=== PATIENT | male | born 1980 | race Caucasian/White ===

== ENCOUNTER 2019-10-03 08:30 | Emergency (ER) | payer SELFPAY ==
--- OUTSIDE RECORDS SUMMARY | 2019-10-03 08:34 | XMS REPORT ---
:1980 [facility] Address [address] [place] [address] Care Team Providers Name Role Phone Unavailable Unavailable Unavailable Payers Payer Name Policy Type Policy Number Effective Date Expiration Date Problems This patient has no known problems. Allergies, Adverse Reactions, Alerts Allergy Allergy Status Severity Reaction(s) Onset Inactive Treating Comments Name Type Date Date Clinician codeine DA Active 2018-06 00:00:0 0 codeine DA Active 2018-05 00:00:0 0 Medications This patient has no known medications. Encounters Start End Encounter Admission Attending Care Care Encounter Date/Time Date/Time Type Type Clinicians Facility Department ID 2018-01-22 2018-01-22 Emergency [facility] [id number] 08:11:11 08:11:11 Results Test Description Test Time Test Comments Text Results Atomic Results Result Comments BASIC METABOLIC PANEL 2019-09-02 23:06:00 Test Item Value Reference Range Comments SODIUM (test code=NA) 137 MMOL/L 137-145 POTASSIUM (test code=K) MMOL/L 3.5-5.1 VERY HEMOLYSED ASK FOR RECOLLECTION CHLORIDE (test code=CL) 100 MMOL/L 98-107 CARBON DIOXIDE (test code=CO2) 29 MMOL/L 22-30 ANION GAP (test code=GAP) 12 MMOL/L 14-24 GLUCOSE (test code=GLU) 143 MG/DL 74-106 BLOOD UREA NITROGEN (test 15 MG/DL 9-20 code=BUN) GLOMERULAR FILTRATION RATE > 60 Reporting units: ml/min/1.73 m2 (test code=GFR) (Modified MDRD Formula)Reference Range: > or=60 ml/min/1.73 m2 CREATININE (test code=CREAT) 0.70 MG/DL 0.66-1.25 CALCIUM (test code=CA) 8.9 MG/DL 8.4-10.2 RECOLLECTION NEEDED ON 09/02/19 AT 2142 BY Z.LAB.TBPREASON: HEMOLYSEDNOTIFIED PATIENT CARE STAFF: JOSE J [email or web address] METABOLIC [id number] 23:06:00 Test Item Value Reference Range Comments SODIUM (test code=NA) 137 MMOL/L 137-145 POTASSIUM (test code=K) 3.7 MMOL/L 3.5-5.1 VERY HEMOLYSED ASK FOR RECOLLECTIONPreviously reported result: MMOL/LEdited by: Jeannette.LAB.TBP on 09/02/19:2305 CHLORIDE (test code=CL) 100 MMOL/L 98-107 CARBON DIOXIDE (test 29 MMOL/L 22-30 code=CO2) ANION GAP (test 12 MMOL/L 14-24 code=GAP) GLUCOSE (test code=GLU) 143 MG/DL 74-106 BLOOD UREA NITROGEN 15 MG/DL 9-20 (test code=BUN) GLOMERULAR FILTRATION > 60 Reporting units: ml/min/1.73 m2 RATE (test code=GFR) (Modified MDRD Formula)Reference Range: > or=60 ml/min/1.73 m2 CREATININE (test 0.70 MG/DL 0.66-1.25 code=CREAT) CALCIUM (test code=CA) 8.9 MG/DL 8.4-10.2 RECOLLECTION NEEDED ON 09/02/19 AT 2142 BY Z.LAB.TBPREASON: HEMOLYSEDNOTIFIED PATIENT CARE STAFF: KATHERYN BROWN METABOLIC [id number] 21:55:00 Test Item Value Reference Range Comments SODIUM (test code=NA) MMOL/L 137-145 POTASSIUM (test code=K) MMOL/L 3.5-5.1 VERY HEMOLYSED ASK FOR RECOLLECTION CHLORIDE (test code=CL) MMOL/L 98-107 CARBON DIOXIDE (test 29 MMOL/L 22-30 code=CO2) GLUCOSE (test code=GLU) 143 MG/DL 74-106 BLOOD UREA NITROGEN (test 15 MG/DL 9-20 code=BUN) GLOMERULAR FILTRATION RATE > 60 Reporting units: ml/min/1.73 (test code=GFR) m2 (Modified MDRD Formula)Reference Range: > or=60 ml/min/1.73 m2 CREATININE (test code=CREAT) 0.70 MG/DL 0.66-1.25 CALCIUM (test code=CA) 8.9 MG/DL 8.4-10.2 RECOLLECTION NEEDED ON 09/02/19 AT 2142 BY JANNETHTBPREASON: HEMOLYSEDNOTIFIED PATIENT CARE STAFF: STEPHANIEBB-TYPE NATRIURETIC [id number] 21:00:00 Test Item Value Reference Range Comments B-TYPE NATRIURETIC PEPTIDE (test code=BNP) 51.0 PG/ML 0-100 BASIC METABOLIC [id number] 20:53:00 Test Item Value Reference Range Comments SODIUM (test code=NA) MMOL/L 137-145 POTASSIUM (test code=K) MMOL/L 3.5-5.1 CHLORIDE (test code=CL) MMOL/L 98-107 CARBON DIOXIDE (test code=CO2) 29 MMOL/L 22-30 GLUCOSE (test code=GLU) 143 MG/DL 74-106 BLOOD UREA NITROGEN (test 15 MG/DL 05-02 code=BUN) GLOMERULAR FILTRATION RATE > 60 Reporting units: ml/min/1.73 (test code=GFR) m2 (Modified MDRD Formula)Reference Range: > or=60 ml/min/1.73 m2 CREATININE (test code=CREAT) 0.70 MG/DL 0.66-1.25 CALCIUM (test code=CA) 8.9 MG/DL 8.4-10.2 BASIC METABOLIC [id number] 20:52:00 Test Item Value Reference Range Comments SODIUM (test code=NA) MMOL/L 137-145 POTASSIUM (test code=K) MMOL/L 3.5-5.1 CHLORIDE (test code=CL) MMOL/L 98-107 CARBON DIOXIDE (test code=CO2) 29 MMOL/L 22-30 GLUCOSE (test code=GLU) MG/DL 74-106 BLOOD UREA NITROGEN (test MG/DL 920 code=BUN) GLOMERULAR FILTRATION RATE > 60 Reporting units: ml/min/1.73 (test code=GFR) m2 (Modified MDRD Formula)Reference Range: > or=60 ml/min/1.73 m2 CREATININE (test code=CREAT) 0.70 MG/DL 0.66-1.25 CALCIUM (test code=CA) MG/DL 8.7-9.7 - XR CHEST [id number] 20:52:00 Patient Name: WILLIS BELL Unit No: [id number] EXAMS: CPT CODE: [id number] XR CHEST 1V 58553 Location of dictation: B2 Portable chest one view. HISTORY: SOB COMMENT: Compared to 03/19/2019. The heart is slightly enlarged. There is diffuse interstitial prominence with no new consolidation, pneumothorax or effusion. Visualized soft tissues and skeletal structures are unremarkable. IMPRESSION: The appearance of the chest suggest mild CHF. at 2051 Reported and signed by: Mallory Srinivasan M.D. CC: Randy Wright MD Technologist : Hollie Rodas RT(R) Transcrpt Date/Tm/Trnsp: 09/02/2019 (2051) [email or web address] Orig Print D/T: S: 09/02/2019 (2054) [facility] NAME: WILLIS BELL [id number] PHYS: [place] [address] : 1980 AGE: 38 SEX: M LOC: Z.ERS PHONE #: [phone] DATE: 09/02/2019 STATUS: REG ER FAX #: [phone] RADIOLOGY NO: PAGE 1 Signed ReportTROPONIN I [id number] 20:42:00 Test Item Value Reference Range Comments TROPONIN I RAPID (test code=TROPIRAP) 0.03 NG/ML 0.00-0.05 CBC W/O [id number] 20:30:00 Test Item Value Reference Range Comments WHITE BLOOD CELL (test code=WBC) 10.2 K/MM3 3.8-9.8 RED BLOOD CELL (test code=RBC) 5.30 M/MM3 3.95-5.67 HEMOGLOBIN (test code=HGB) 14.9 G/DL 12.4-16.7 HEMATOCRIT (test code=HCT) 45.5 % 35.9-49.5 MEAN CELL VOLUME (test code=MCV) 86 fL 81.7-96.1 MEAN CELL HGB (test code=MCH) 28.1 pg 27.6-33.2 MEAN CELL HGB CONCETRATION (test code=MCHC) 32.7 % 32.9-35.5 RED CELL DISTRIBUTION WIDTH (test code=RDW) 13.6 % 12.1-15.2 PLATELET COUNT (test code=PLT) 230 K/MM3 129-368 NEUTROPHIL # (test code=NT#) 7.33 K/mm3 2.0-7.6 IMMATURE GRANULOCYTE # (test code=IG#) 0.04 x10 3/uL 0-0.03 LYMPHOCYTE # (test code=LY#) 1.67 K/mm3 1.0-3.8 MONOCYTE # (test code=MO#) 0.80 K/mm3 0.1-0.8 EOSINOPHIL # (test code=EO#) 0.31 K/mm3 0.0-0.2 BASOPHIL # (test code=BA#) 0.04 K/mm3 0.0-0.2 NUCLEATED RBC # (test code=NRBC#) 0.00 K/mm3 0.0-0.1 BASIC METABOLIC [id number] 16:31:00 Test Item Value Reference Range Comments SODIUM (test code=NA) 140 MMOL/L 137-145 POTASSIUM (test code=K) 4.2 MMOL/L 3.5-5.1 CHLORIDE (test code=CL) 100 MMOL/L 98-107 CARBON DIOXIDE (test code=CO2) 32 MMOL/L 22-30 GLUCOSE (test code=GLU) 119 MG/DL 74-106 BLOOD UREA NITROGEN (test 16 MG/DL 9-20 code=BUN) GLOMERULAR FILTRATION RATE > 60 Reporting units: ml/min/1.73 (test code=GFR) m2 (Modified MDRD Formula)Reference Range: > or=60 ml/min/1.73 m2 CREATININE (test code=CREAT) 0.90 MG/DL 0.66-1.25 CALCIUM (test code=CA) 9.7 MG/DL 8.4-10.2 CREATINE KINASE (CK)2019-03-23 16:31:00 Test Item Value Reference Range Comments CREATINE KINASE (CK) (test code=CK) 111 UNITS/L 55-170 [id number] 16:31:00 Test Item Value Reference Range Comments MAGNESIUM (test code=MAG) 2.1 MG/DL 1.6-2.3 CBC W/AUTO [id number] 16:24:00 Test Item Value Reference Range Comments WHITE BLOOD CELL (test code=WBC) 13.2 K/MM3 3.8-9.8 RED BLOOD CELL (test code=RBC) 5.48 M/MM3 3.95-5.67 HEMOGLOBIN (test code=HGB) 15.6 G/DL 12.4-16.7 HEMATOCRIT (test code=HCT) 49.0 % 35.9-49.5 MEAN CELL VOLUME (test code=MCV) 89 fL 81.7-96.1 MEAN CELL HGB (test code=MCH) 28.5 pg 27.6-33.2 MEAN CELL HGB CONCETRATION (test code=MCHC) 31.8 % 32.9-35.5 RED CELL DISTRIBUTION WIDTH (test code=RDW) 14.3 % 12.1-15.2 PLATELET COUNT (test code=PLT) 285 K/MM3 129-368 MEAN PLATELET VOLUME (test code=MPV) 9.9 fl 7.4-10.4 NEUTROPHIL % (test code=NT%) 80.6 % 43-75 IMMATURE GRANULOCYTE % (test code=IG%) 0.4 % 0.0-2.0 LYMPHOCYTE % (test code=LY%) 11.1 % 14-44 MONOCYTE % (test code=MO%) 6.5 % 4-13 EOSINOPHIL % (test code=EO%) 1.1 % 0-6 BASOPHIL % (test code=BA%) 0.3 % 0-2 NUCLEATED RBC % (test code=NRBC%) 0.0 % 0-1.0 NEUTROPHIL # (test code=NT#) 10.62 K/mm3 2.0-7.6 IMMATURE GRANULOCYTE # (test code=IG#) 0.05 x10 3/uL 0-0.03 LYMPHOCYTE # (test code=LY#) 1.47 K/mm3 1.0-3.8 MONOCYTE # (test code=MO#) 0.86 K/mm3 0.1-0.8 EOSINOPHIL # (test code=EO#) 0.15 K/mm3 0.0-0.2 BASOPHIL # (test code=BA#) 0.04 K/mm3 0.0-0.2 NUCLEATED RBC # (test code=NRBC#) 0.00 K/mm3 0.0-0.1 TROPONIN I [id number] 15:04:00 Test Item Value Reference Range Comments TROPONIN I RAPID (test code=TROPIRAP) 0.02 NG/ML 0.00-0.05 CBC W/AUTO [id number] 15:04:00 Test Item Value Reference Range Comments WHITE BLOOD CELL (test code=WBC) 11.4 K/MM3 3.8-9.8 RED BLOOD CELL (test code=RBC) 4.82 M/MM3 3.95-5.67 HEMOGLOBIN (test code=HGB) 14.0 G/DL 12.4-16.7 HEMATOCRIT (test code=HCT) 41.3 % 35.9-49.5 MEAN CELL VOLUME (test code=MCV) 86 fL 81.7-96.1 MEAN CELL HGB (test code=MCH) 29.0 pg 27.6-33.2 MEAN CELL HGB CONCETRATION (test code=MCHC) 33.9 % 32.9-35.5 RED CELL DISTRIBUTION WIDTH (test code=RDW) 13.9 % 12.1-15.2 PLATELET COUNT (test code=PLT) 227 K/MM3 129-368 MEAN PLATELET VOLUME (test code=MPV) 9.6 fl 7.4-10.4 NEUTROPHIL % (test code=NT%) 79.2 % 43-75 IMMATURE GRANULOCYTE % (test code=IG%) 0.4 % 0.0-2.0 LYMPHOCYTE % (test code=LY%) 11.7 % 14-44 MONOCYTE % (test code=MO%) 6.5 % 4-13 EOSINOPHIL % (test code=EO%) 1.8 % 0-6 BASOPHIL % (test code=BA%) 0.4 % 0-2 NUCLEATED RBC % (test code=NRBC%) 0.0 % 0-1.0 NEUTROPHIL # (test code=NT#) 9.05 K/mm3 2.0-7.6 IMMATURE GRANULOCYTE # (test code=IG#) 0.04 x10 3/uL 0-0.03 LYMPHOCYTE # (test code=LY#) 1.33 K/mm3 1.0-3.8 MONOCYTE # (test code=MO#) 0.74 K/mm3 0.1-0.8 EOSINOPHIL # (test code=EO#) 0.21 K/mm3 0.0-0.2 BASOPHIL # (test code=BA#) 0.04 K/mm3 0.0-0.2 NUCLEATED RBC # (test code=NRBC#) 0.00 K/mm3 0.0-0.1 CHEMISTRY 8 [id number] 14:57:00 Test Item Value Reference Range Comments IONIZED CALCIUM (test MMOL/L 1.12-1.24 code=CAIABG) ISTAT-TCO2 VENOUS (test MMOL/L 23-32 code=TCO2VP) ISTAT-SODIUM (test code=NAP) MMOL/L 137-144 ISTAT-POTASSIUM (test code=KP) MMOL/L 3.1-4.8 ISTAT-CHLORIDE (test code=CLP) MMOL/L 97-108 ISTAT-GLUCOSE (test code=GLUP) MG/DL 60-99 ISTAT-BUN (test code=BUNP) MG/DL 9-21 BEDSIDE CREATININE (test MG/DL 0.6-1.4 code=CREATBED) GLOMERULAR FILTRATION RATE POC 95 70-162 Reporting units: ml/min/1.73 (test code=GFRBED) m2 (Modified MDRD Formula)Reference Range: > or=60 ml/min/1.73 m2 CHEMISTRY 8 [id number] 14:57:00 Test Item Value Reference Range Comments IONIZED CALCIUM (test 1.17 MMOL/L 1.12-1.24 code=CAIABG) ISTAT-TCO2 VENOUS (test 26 MMOL/L 23-32 code=TCO2VP) ISTAT-SODIUM (test code=NAP) 139 MMOL/L 137-144 ISTAT-POTASSIUM (test 3.9 MMOL/L 3.1-4.8 code=KP) ISTAT-CHLORIDE (test 101 MMOL/L 97-108 code=CLP) ISTAT-GLUCOSE (test 131 MG/DL 60-99 code=GLUP) ISTAT-BUN (test code=BUNP) 13 MG/DL 9-21 BEDSIDE CREATININE (test 0.9 MG/DL 0.6-1.4 code=CREATBED) GLOMERULAR FILTRATION RATE 95 70-162 Reporting units: ml/min/1.73 POC (test code=GFRBED) m2 (Modified MDRD Formula)Reference Range: > or=60 ml/min/1.73 m2 - XR CHEST [id number] 14:37:00 Patient Name: WILLIS BELL Unit No: [id number] EXAMS: CPT CODE: [id number] XR CHEST 1V 17677 LOCATION: T18 EXAM: CHEST 1 VIEW INDICATION: Chest Pain COMPARISON: Chest x-ray July 12, 2018 TECHNIQUE: AP chest radiograph. FINDINGS: Lungs are clear bilaterally without effusion. Heart is normalin size. Bones and peripheral soft tissues are unremarkable. IMPRESSION: Lungs are clear. No acute abnormality. at 1437 Reported and signed by: Linda Donovan MD CC: Victor M Robles MD Technologist: Emiliano Stoll RT(R) Transcrpt Date/ Tm/Trnsp: 03/19/2019 (2981) [email or web address] Orig Print D/T: S: 2018 (8032) [facility] NAME: WLILIS BELL [id number] PHYS: [email or web address] - [place] [address] : 1980 AGE: 38 SEX: M LOC: Z.ERS PHONE #: [phone] EXAM DATE: STATUS: PRE ER FAX #: [phone] RADIOLOGY NO: PAGE 1 Signed ReportXR Chest 1 View [id number] 06:30:09Patient : WILLIS BELL Date /Time12/09/2018 06:07 CDTReason for ExamChest [id number]: XR Chest 1 View FrontalHISTORY: Chest painCOMPARISON: NoneFINDINGS:The lungs are clear. No pleural effusion or pneumothorax. The cardiac silhouette is within normal limits. No acute osseous abnormalities.IMPRESSION:No acute cardiopulmonary disease. Final Dictated by: MD Alfa, Rosie DT/TM: 2018 6:29 amSigned by: MD Grimm VivekSigned (Electronic Signature): 2018 6:30 amCT Brain/Head w/o [id number] 06:26:00Patient: WILLIS BELL Date/Time2018 06:07 CDTReason for ExamDizzinessReportExam: CT of the brain without contrast.History: DizzinessLocation: [id number]: Contiguous axial CT images were obtained from the skull base through the vertexwithout contrast.Comparison : None availableFindings:The ventricles and sulci are normal in size and symmetric. The basal cisterns are patent. There is no mass effect or midline shift. There is no acuteintracranial hemorrhage. There are no extra-axial fluid collections.Paranasal sinuses and mastoid air cells are relatively clear.Impression:No CT evidence of an acute intracranial hemorrhage or significant mass effect Final Dictated by: MD Gilbert, SaniaDictated DT/TM: 12/09/2018 6:21 amSigned by: MD Gilbert, SaniaSigned (Electronic Signature): 12/09/2018 6:26 am
[2019-10-03] MEDS ORDERED: METOPROLOL TARTRATE 5 MG/5 ML INJ IV ONE (08:57)
[2019-10-03 09:12] LABS: Basophils % 0.3 % (0-1.3); Protime INR 1.04
--- NOTE | 2019-10-03 09:20 | RAD REPORT ---
EXAM DESCRIPTION: CT - Head Brain Wo Cont - 10/03/2019 9:10 am CLINICAL HISTORY: HEADACHE, hypertension COMPARISON: No comparisons TECHNIQUE: Axial 5 mm thick images of the head were obtained without IV contrast. All CT scans are performed using dose optimization technique as appropriate and may include automated exposure control or mA/KV adjustment according to patient size. FINDINGS: No intracranial hemorrhage, mass, edema or shift of mid-line structures. No acute infarcti on changes seen. No abnormal extra-axial fluid collections. Ventricles are normal. Mastoid air cells are clear. Paranasal sinuses are clear except for mild mucosal thickening right max illary sinus. No acute bony findings. IMPRESSION: Negative non-contrast CT head examination.
[2019-10-03 09:29] LABS: ALT/SGPT 34 U/L (12-78); AST/SGOT 21 U/L (15-37); Albumin 3.5 g/dL (3.4-5.0); Alkaline Phosphatase 101 U/L (45-117); BUN Blood Urea Nitrogen 12 mg/dL (7-18); Bicarbonate 29 mmol/L (21-32); Bilirubin Direct 0.1 mg/dL (0-0.2); Bilirubin Total 0.5 mg/dL (0.2-1.0); Glucose Level 209 mg/dL (74-106); NT PRO-BNP 412 pg/mL (<125); Potassium 3.8 mmol/L (3.5-5.1); Protein, Total 7.6 g/dL (6.4-8.2); Sodium Level 137 mmol/L (136-145); Troponin (Emerg Dept Use Only) < 0.02 ng/mL (0.0-0.045)
--- NOTE | 2019-10-03 10:33 | RAD REPORT ---
EXAM DESCRIPTION: Gary Single View10/03/2019 9:09 am CLINICAL HISTORY: Chest pain COMPARISON: none FINDINGS: The lungs appear clear of acute infiltrate. The heart is normal size IMPRESSION: No acute abnormalities displayed
[2019-10-03 10:44] LABS: Hematocrit 40.9 % (39.6-49.0); RBC Red Blood Cell Count 4.91 M/uL (4.33-5.43)
[2019-10-03 10:45] LABS: Absolute Lymphocytes (CBC) 0.7 K/uL (0.7-4.9); Lymphocytes % 5.6 % (15.3-44.8); MPV 7.8 fL (7.6-11.3)
[2019-10-03 10:50] LABS: Blood Morphology Comment NOT SEEN (NOT SEEN); Platelet Estimate ADEQ; Urine White Blood Cell Casts OK
--- NOTE | 2019-10-03 11:31 | EKG ---
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
--- NOTE | 2019-10-03 12:53 | EDPHYS ---
Physician Documentation [facility] Name: Clayton Nelson Age: 38 yrs Sex: Male : 1980 Arrival Date: 10/03/2019 Time: 08:36 Bed 6 Private MD: ED Physician Rafy Corral HPI: 10/03 13:23 This 38 yrs old Male presents to ER via EMS with complaints of ESPINOSA and HTN. kdr 13:23 The patient states that he awoke early this morning with a ESPINOSA and that it was worse kdr than others he had had. He was not able to go to work and called EMS to come to the ED. . 15:02 Onset: The symptoms/episode began/occurred acutely, this morning. Severity of symptoms: kdr At their worst the symptoms were moderate severe incapacitating just prior to arrival, in the emergency department the symptoms have improved mildly. The patient has not experienced similar symptoms in the past, States that he has had HAs before but not quite as bad as today. . The patient has not recently seen a physician. Historical: - Allergies: 08:40 Codeine; em - Home Meds: 08:40 Hydrochlorothiazide Oral [Active]; Lisinopril Oral [Active]; Lasix Oral [Active]; em - PMHx: 08:40 Hypertension; em - PSHx: 08:40 None; em - Immunization history:: Adult Immunizations up to date. - Coronavirus screen:: The patient has NOT traveled to [place] in the past 14 days. The patient has NOT had contact with known/suspected case of Coronavirus?. - Social history:: Smoking status: Patient denies any tobacco usage or history of. - Ebola Screening: : Patient negative for fever greater than or equal to 101.5 degrees Fahrenheit, and additional compatible Ebola Virus Disease symptoms Patient denies exposure to infectious person Patient denies travel to an Ebola-affected area in the 21 days before illness onset No symptoms or risks identified at this time. ROS: 15:02 Constitutional: Negative for fever, chills, and weight loss, Eyes: Negative for injury, kdr pain, redness, and discharge, ENT: Negative for injury, pain, and discharge, Neck: Negative for injury, pain, and swelling, Cardiovascular: Negative for chest pain, palpitations, and edema, Respiratory: Negative for shortness of breath, cough, wheezing, and pleuritic chest pain, Abdomen/GI: Negative for abdominal pain, nausea, vomiting, diarrhea, and constipation, Back: Negative for injury and pain, : Negative for injury, bleeding, discharge, and swelling, MS/Extremity: Negative for injury and deformity, Skin: Negative for injury, rash, and discoloration, Psych: Negative for depression, anxiety, suicide ideation, homicidal ideation, and hallucinations, Allergy/Immunology: Negative for hives, rash, and allergies, Endocrine: Negative for neck swelling, polydipsia, polyuria, polyphagia, and marked weight changes, Hematologic/Lymphatic: Negative for swollen nodes, abnormal bleeding, and unusual bruising. 15:02 Neuro: Positive for headache, speech changes, States he felt like his speech was slurring when he called EMS. Exam: 15:04 Constitutional: This is a well developed, well nourished patient who is awake, alert, kdr and in no acute distress. Head/Face: Normocephalic, atraumatic. Eyes: Pupils equal round and reactive to light, extra-ocular motions intact. Lids and lashes normal. Conjunctiva and sclera are non-icteric and not injected. Cornea within normal limits. Periorbital areas with no swelling, redness, or edema. Neck: Trachea midline, no thyromegaly or masses palpated, and no cervical lymphadenopathy. Supple, full range of motion without nuchal rigidity, or vertebral point tenderness. No Meningismus. Chest/axilla: Normal chest wall appearance and motion. Nontender with no deformity. No lesions are appreciated. Cardiovascular: Regular rate and rhythm with a normal S1 and S2. No gallops, murmurs, or rubs. Normal PMI, no JVD. No pulse deficits. Respiratory: Lungs have equal breath sounds bilaterally, clear to auscultation and percussion. No rales, rhonchi or wheezes noted. No increased work of breathing, no retractions or nasal flaring. Abdomen/GI: Obese Soft, non-tender, with normal bowel sounds. No distension or tympany. No guarding or rebound. No evidence of tenderness throughout. Back: No spinal tenderness. No costovertebral tenderness. Full range of motion. Skin: Warm, dry with normal turgor. Normal color with no rashes, no lesions, and no evidence of cellulitis. MS/ Extremity: Pulses equal, no cyanosis. Neurovascular intact. Full, normal range of motion. Neuro: Awake and alert, GCS 15, oriented to person, place, time, and situation. Cranial nerves II-XII grossly intact. Motor strength 5/5 in all extremities. Sensory grossly intact. Cerebellar exam normal. Normal gait. Psych: Awake, alert, with orientation to person, place and time. Behavior, mood, and affect are within normal limits. Vital Signs: 08:37 BP 194 / 118 RA (auto/); em 08:37 BP 219 / 125 LA (auto/); Pulse 77; Resp 18; Temp 98.4(O); Pulse Ox 95% on R/A; Weight em 179.17 kg; Height 6 ft. 1 in. (185.42 cm); Pain 8/10; 08:54 BP 164 / 93; Pulse 75; Resp 18; Pulse Ox 97% on R/A; em 10:00 BP 143 / 74; Pulse 62; Resp 14; Pulse Ox 95% ; sv 11:00 BP 125 / 73; Pulse 60; Resp 12; Pulse Ox 96% ; sv 14:58 BP 160 / 89; Pulse 78; Resp 18; Pulse Ox 99% on R/A; Pain 4/10; em 15:07 BP 162 / 87; Pulse 57; Resp 18; Pulse Ox 99% on R/A; Pain 4/10; em 15:15 BP 139 / 91; Pulse 58; Resp 18; Pulse Ox 99% on R/A; em 08:37 Body Mass Index 52.11 (179.17 kg, 185.42 cm) em MDM: 12:52 Patient medically screened. kdr 15:04 Data reviewed: vital signs, nurses notes, lab test result(s), radiologic studies. kdr Counseling: I had a detailed discussion with the patient and/or guardian regarding: the historical points, exam findings, and any diagnostic results supporting the discharge/admit diagnosis, lab results, radiology results. 15:21 ED course: The patient is feeling much better. His BP rebounded slightly after removal kdr of the NTG patch. He was o/w stable in the ED and was discharged in good condition. 10/03 08:45 Order name: Basic Metabolic Panel; Complete Time: 11:40 kdr 10/03 08:45 Order name: CBC with Diff; Complete Time: 11:40 kdr 10/03 08:45 Order name: LFT's; Complete Time: 11:40 kdr 10/03 08:45 Order name: Magnesium; Complete Time: 11:40 kdr 10/03 08:45 Order name: NT PRO-BNP; Complete Time: 11:40 kdr 10/03 08:45 Order name: PT-INR; Complete Time: 11:40 kdr 10/03 08:45 Order name: Troponin (emerg Dept Use Only); Complete Time: 11:40 kdr 10/03 08:45 Order name: XRAY Chest (1 view); Complete Time: 11:40 kdr 10/03 08:45 Order name: EKG; Complete Time: 08:52 kdr 10/03 08:45 Order name: Cardiac monitoring; Complete Time: 08:54 kdr 10/03 08:46 Order name: CT Head Brain wo Cont; Complete Time: 11:40 kdr 10/03 10:29 Order name: CBC Smear Scan; Complete Time: 11:40 EDMS 10/03 13:30 Order name: MRI - Brain Wo Cont; Complete Time: 15:13 kdr 10/03 08:45 Order name: EKG - Nurse/Tech; Complete Time: 08:54 kdr 10/03 08:45 Order name: IV Saline Lock; Complete Time: 08:54 kdr 10/03 08:45 Order name: Labs collected and sent; Complete Time: 08:54 kdr 10/03 08:45 Order name: O2 Per Protocol; Complete Time: 08:54 kdr 10/03 08:45 Order name: O2 Sat Monitoring; Complete Time: 08:54 kdr 10/03 09:31 Order name: Labs - recollect needed: CBC Recollect;; Complete Time: 10:36 dh4 Administered Medications: 15:13 Drug: Lopressor 5 mg Route: IVP; Site: right antecubital; em 15:30 Follow up: Response: No adverse reaction; Blood pressure is elevated em Disposition: 10/03/19 12:52 Discharged to Home. Impression: Headache, Hypertensive heart disease. - Condition is Stable. - Discharge Instructions: Hypertension, Ubor-my-Fvsk, General Headache Without Cause, Zkzs-dv-Vtha. - Prescriptions for Lasix 40 mg Oral Tablet - take 1 tablet by ORAL route once daily for 30 days; 30 tablet. Lisinopril 20 mg Oral Tablet - take 1 tablet by ORAL route once daily; 30 tablet. Hydrochlorothiazide 12.5 mg Oral Capsule - take 2 tablet by ORAL route once daily; 60 tablet. - Medication Reconciliation Form, Thank You Letter form. - Follow up: Private Physician; When: 2 - 3 days; Reason: If symptoms return, Further diagnostic work-up, Recheck today's complaints, Continuance of care, Re-evaluation by your physician. - Problem is new. - Symptoms are resolved. Signatures: Dispatcher [employer] Rafy Ford MD MD [facility] Miguel A Raymond RN RN em Ahsan Urbano formerly [facility] Corrections: (The following items were deleted from the chart) 15:31 12:52 10/03/2019 12:52 Discharged to Home. Impression: Headache; Hypertensive heart em disease. Condition is Stable. Forms are Medication Reconciliation Form, Thank You Letter, Antibiotic Education, Prescription Opioid Use. Follow up: Private Physician; When: 2 - 3 days; Reason: If symptoms return, Further diagnostic work-up, Recheck today's complaints, Continuance of care, Re-evaluation by your physician. Problem is new. Symptoms are resolved. kdr
--- NOTE | 2019-10-03 12:53 | ER ---
Nurse's Notes [facility] Name: Clayton Nelson Age: 38 yrs Sex: Male : 1980 Arrival Date: 10/03/2019 Time: 08:36 Bed 6 Private MD: Diagnosis: Headache;Hypertensive heart disease Presentation: 10/03 08:36 Presenting complaint: EMS states: called out for a ESPINOSA that started this morning, em history of HTN, on scene was 200s/130s, 0.4 mg nitro given x 3, then applied 1 inch nitro paste, last BP 190/130, took 1000 mg of ibuprofen, rates headache 03/22. Transition of care: patient was not received from another setting of care. Onset of symptoms was October 03, 2019. Risk Assessment: Do you want to hurt yourself or someone else? Patient reports no desire to harm self or others. Initial Sepsis Screen: Does the patient meet any 2 criteria? No. Patient's initial sepsis screen is negative. Does the patient have a suspected source of infection? No. Patient's initial sepsis screen is negative. Care prior to arrival: Medication(s) given: nitro 0.4 x 3, 1 inch nitro paste. 08:36 Method Of Arrival: EMS: [facility] em 08:36 Acuity: YENIFER 2 em Historical: - Allergies: 08:40 Codeine; em - Home Meds: 08:40 Hydrochlorothiazide Oral [Active]; Lisinopril Oral [Active]; Lasix Oral [Active]; em - PMHx: 08:40 Hypertension; em - PSHx: 08:40 None; em - Immunization history:: Adult Immunizations up to date. - Coronavirus screen:: The patient has NOT traveled to [place] in the past 14 days. The patient has NOT had contact with known/suspected case of Coronavirus?. - Social history:: Smoking status: Patient denies any tobacco usage or history of. - Ebola Screening: : Patient negative for fever greater than or equal to 101.5 degrees Fahrenheit, and additional compatible Ebola Virus Disease symptoms Patient denies exposure to infectious person Patient denies travel to an Ebola-affected area in the 21 days before illness onset No symptoms or risks identified at this time. Screenin:37 Abuse screen: Denies threats or abuse. Nutritional screening: No deficits noted. em Tuberculosis screening: No symptoms or risk factors identified. Fall Risk None identified. Assessment: 08:37 General: Appears in no apparent distress. uncomfortable, obese, Behavior is em cooperative, drowsy. Pain: Complains of pain in head Pain currently is 8 out of 10 on a pain scale. Quality of pain is described as pressure. Neuro: Level of Consciousness is awake, alert, obeys commands, Oriented to person, place, time, situation, Appropriate for age Reports headache. Cardiovascular: Reports fatigue, Denies chest pain, nausea, Capillary refill < 3 seconds Patient's skin is warm and dry. Respiratory: Airway is patent Respiratory effort is even, unlabored, Respiratory pattern is regular, symmetrical. GI: Patient currently denies abdominal pain, nausea. Derm: Skin is intact, is healthy with good turgor, Skin is pink, warm \T\ dry. Musculoskeletal: Capillary refill < 3 seconds, Range of motion: intact in all extremities. 08:55 Reassessment: BP 164/93, HR 75, Dr. Corral notified, medication held. em 10:30 Reassessment: Patient appears in no apparent distress at this time. Patient and/or em family updated on plan of care and expected duration. Pain level reassessed. Patient is alert, oriented x 3, equal unlabored respirations, skin warm/dry/pink. rates headache 1/10 Patient states feeling better. Patient states symptoms have improved. 11:30 Reassessment: Patient appears in no apparent distress at this time. pt ambulated to em restroom, tolerated well. 12:30 Reassessment: Patient appears in no apparent distress at this time. Patient and/or em family updated on plan of care and expected duration. Pain level reassessed. Patient is alert, oriented x 3, equal unlabored respirations, skin warm/dry/pink. 13:54 Reassessment: pt not ready for discharge, currently getting MRI. em 14:55 Reassessment: Patient appears in no apparent distress at this time. Patient and/or em family updated on plan of care and expected duration. Pain level reassessed. Patient is alert, oriented x 3, equal unlabored respirations, skin warm/dry/pink. rates headache 4/10. Vital Signs: 08:37 BP 194 / 118 RA (auto/); em 08:37 BP 219 / 125 LA (auto/); Pulse 77; Resp 18; Temp 98.4(O); Pulse Ox 95% on R/A; Weight em 179.17 kg; Height 6 ft. 1 in. (185.42 cm); Pain 8/10; 08:54 BP 164 / 93; Pulse 75; Resp 18; Pulse Ox 97% on R/A; em 10:00 BP 143 / 74; Pulse 62; Resp 14; Pulse Ox 95% ; sv 11:00 BP 125 / 73; Pulse 60; Resp 12; Pulse Ox 96% ; sv 14:58 BP 160 / 89; Pulse 78; Resp 18; Pulse Ox 99% on R/A; Pain 4/10; em 15:07 BP 162 / 87; Pulse 57; Resp 18; Pulse Ox 99% on R/A; Pain 4/10; em 15:15 BP 139 / 91; Pulse 58; Resp 18; Pulse Ox 99% on R/A; em 08:37 Body Mass Index 52.11 (179.17 kg, 185.42 cm) em ED Course: 08:36 Patient arrived in ED. em 08:37 Arm band placed on. em 08:37 Patient has correct armband on for positive identification. Bed in low position. Call em light in reach. Side rails up X2. night monitor on. Pulse ox on. NIBP on. 08:38 Triage completed. em 08:42 Rafy Corral MD is Attending Physician. kdr 08:42 Miguel A Raymond, RN is Primary Nurse. em 08:48 Initial lab(s) drawn, by wa, held in ED. Inserted saline lock: 18 gauge in right 3 antecubital area, using aseptic technique. Blood collected. 08:57 Initial lab(s) drawn, by me, sent to lab. 3 09:05 EKG done, by field technician. reviewed by Rafy Corral MD. tc 09:15 XRAY Chest (1 view) In Process Unspecified. EDMS 09:15 CT Head Brain wo Cont In Process Unspecified. EDMS 10:36 Lab(s) recollected, by me, sent to lab. 3 14:28 MRI - Brain Wo Cont In Process Unspecified. EDMS 15:28 No provider procedures requiring assistance completed. IV discontinued, intact, em bleeding controlled, No redness/swelling at site. Pressure dressing applied. Administered Medications: 15:13 Drug: Lopressor 5 mg Route: IVP; Site: right antecubital; em 15:30 Follow up: Response: No adverse reaction; Blood pressure is elevated em Outcome: 12:52 Discharge ordered by . kdr 15:28 Discharged to home ambulatory. em 15:28 Condition: good 15:28 Discharge instructions given to patient, Instructed on discharge instructions, follow up and referral plans. medication usage, Demonstrated understanding of instructions, follow-up care, medications, Prescriptions given X 3. 15:31 Patient left the ED. em Signatures: Dispatcher [employer] Nya Nash, RN RN Rafy Evangelista MD MD kdr Munoz, Edgar, RN RN em Jocelynn Vargas, director of video analytics EKG [facility]
--- NOTE | 2019-10-03 14:58 | RAD REPORT ---
EXAM DESCRIPTION: MRI - Brain Wo Cont - 10/03/2019 2:47 pm CLINICAL HISTORY: headachce and slurred speech COMPARISON: Head Brain Wo Cont dated 10/03/2019 TECHNIQUE: Sagittal T1-weighted images were obtained along with axial PD, heavily T2-weighted and T2 -FLAIR images. Axial DWI and ADC mapping sequences were also obtained along with coronal heavily T2-w eighted images. FINDINGS: No intracranial hemorrhage, mass or acute infarction. There is no edema or shift of midlin e structures. No extra-axial fluid collections. Garcia-matter/white matter junction is preserved. Signa l voids are seen as a normal finding in the major intracranial vessels. No significant atrophy changes are present. Patient has a few very small punctate areas of hyperinten se T2/IR signal in the cerebral white matter. These are nonspecific in very minimal foci. Chronic isc hemic change would not be expected in a patient this age. Migraine headache, vasculitis and demyelina ting etiologies are all possible but would need corresponding clinical findings. Mastoid air cells and paranasal sinuses are clear. No globe or orbital content abnormality. No sella or supra sella abnormality. IMPRESSION: No hemorrhage, mass or acute intracranial finding. Patient has rare foci of hyperintense T2/IR white matter signal in the cerebral hemispheres. These ar e nonspecific and can be seen in normal patients. Chronic ischemic etiology for the minimal white matter findings would not be expected in a patient th is age. Migraine headache, vasculitis or demyelinating etiologies are possible but would need suppo rting clinical findings.
[2019-10-03 15:40] VITALS: TEMP 98.4
[2019-10-03 15:45] VITALS: O2SAT 99
[2019-10-03 15:48] VITALS: BP 139/91
== END 2019-10-03 15:31 | disposition home or self-care (01) ==
LOC: ER 08:30
DX: I11.9 Hypertensive heart disease without heart failure (principal); I10 Essential (primary) hypertension; Z88.5 Allergy status to narcotic agent
CPT/HCPCS: 36415; 70450; 70551; 71045; 80048; 80076; 83735; 83880; 84484; 85025; 85610; 93005; 96374; 99285